=== PATIENT | female | born 1990 | race Caucasian/White ===

== ENCOUNTER → 2017-01-08 00:50 | Observation (INO) ==
--- NOTE | 2017-01-07 23:48 | OB/GYN History & Physical ---
Date of Encounter: 01/08/17 Time of Encounter: 23:45 Assessment and Plan (1) 32 weeks gestation of Current visit: Yes Status: Acute (2) Vaginal bleeding Current visit: Yes Status: Acute Plan to transfer to Dr. Sky at [facility] per discussion between Dr. Martinez and Dr. Sky. IV LR. CBC, type and cross, coags, and UDS. Magnesium sulfate 4grams prior to transfer. Celestone prior to transfer. Ampicillin. Transport to [facility] for ongoing care. (3) Placenta previa antepartum in third trimester Current visit: Yes Status: Acute Per pt report, placenta 2cm from cervix at last ultrasound about 2 weeks ago. (4) Smoking (tobacco) complicating , third trimester Current visit: Yes Status: Acute (5) History of delivery, currently in third trimester Current visit: Yes Status: Acute (6) Marijuana abuse Current visit: Yes Status: Acute History of Present Illness Chief complaint: bleeding HPI: Ms. Lomax is a 26 year old female presenting at 32w5d with c/o vaginal bleeding. Pt reports bleeding started during intercourse around 2240 this evening. She reports a history of placenta previa with this that she thinks resolved 2 weeks ago. She states her placenta is now 2cm away from her cervix. She had a delivery at 34 weeks with her first followed by 1 miscarriage. She then had a full term delivery and was on Angelika during . Following that delivery she had 2 miscarriages prior to this . She denies medical problems. She reports taking something for heartburn, vitamins, and Angelika with this . She does admit to tobacco use now and marijuana earlier in . She denies any other substance abuse. Past Med Surg Social Fam HX - Past Medical History Medical history: non-contributory, kidney stones Psychiatric history: no psych history - Social History Smoking Status: Current every day smoker Smokeless Tobacco Status: No Alcohol use: none Drug use: marijuana Obstetrical History - Pregnancies : 6 Para: 2 Term: 1 : 1 Ab's: 3 Livin - History/Complications History/Complications: one delivery at 30 weeks. On Angelika with second child and with this . Medications and Allergies Hydroxyprogesterone Caproate [[place]] 250 mg IM 01/08/17 [History] Vit/Iron Fumarate/FA [ Tablet] 1 each PO DAILY 01/08/17 [ History] Allergies No Known Allergies Allergy (Verified 08/10/16 09:21) Review of System OB All systems PM: reviewed and no additional remarkable complaints except as stated - Constitutional Constitutional ROS IM: no fever(s) - Cardiovascular Cardiovascular: no chest pain - Genitourinary Genitourinary: hematuria, no difficulty voiding, no pelvic pain, no vaginal discharge, no vaginal odor, no vaginal pruritis Exam - Constitutional Constitutional: well developed, well nourished, no acute distress - HEENT HEENT: Mucus Membranes Moist - Cardiovascular Cardiovascular exam: RRR - Abdomen Abdomen: Present: gravid, non tender - Extremities Extremities exam: normal inspection - Vulva Vulva: bilateral: normal - Cervix Dilation: 0 (visually closed) - Anus/Rectum Anus/Rectum: Present: normal perianal skin - Comments Comments: SSE with approx 30ml blood and clot in vaginal vault. Scant amount active bleeding. Unable to locate origin of bleeding. Results All other labs normal.
[2017-01-08 00:02] LABS: Amphetamine Screen,Urine Negative ng/mL (Cutoff=1000); Barbiturate Screen,Urine Negative ng/mL (Cutoff=200); Benzodiazepines Screen,Urine Negative ng/mL (Cutoff=200); Cannabinoid Screen,Urine Positive ng/mL (Cutoff = 50); Cocaine Screen,Urine Negative ng/mL (Cutoff= 300); Opiate Screen,Urine Negative ng/mL (Cutoff=300); Phencyclidine Screen,Urine Negative ng/mL (Cutoff=25)
[~2017-01-08 00:50] MED LIST: Ampicillin 2 GM in 0.9 % Sodium Chloride Mini Bag 100 ML IVPB ONE; Betamethasone Acet/SodPhos 6 MG/ML MDV IM SCH; Famotidine 20 MG/2 ML VIAL IVP PRN; Metoclopramide 10 MG/2 ML VIAL IVP PRN; Naloxone 0.4 MG/ML INJ IVP PRN; Ondansetron 4 MG/2 ML VIAL IVP PRN; Ringers Solution, Lactated 1,000 ML IVC SCH
== END | disposition short-term general hospital (02) ==
LOC: 1NENULAB
PROVIDERS: ADMIT Registered Nurse; ATTEND Registered Nurse

== ENCOUNTER 2017-01-31 06:46 | Inpatient (IN) ==
[~2017-01-31 06:46] MED LIST changes: -Ampicillin 2 GM in 0.9 % Sodium Chloride Mini Bag 100 ML IVPB ONE; -Betamethasone Acet/SodPhos 6 MG/ML MDV IM SCH; -Ondansetron 4 MG/2 ML VIAL IVP PRN; -Ringers Solution, Lactated 1,000 ML IVC SCH
[2017-01-31] MEDS ORDERED: Penicillin G Potassium 5,000,000 UNIT in D5% in Water (Mini-Bag+) 100 ML IVPB ONE (06:50)
[2017-01-31] MEDS ORDERED: Ringers Solution, Lactated 1,000 ML ONE (06:51)
[2017-01-31] MEDS ORDERED: Oxytocin 20 units/ LR 1000 mL 20 UNIT/1,000 ML BAG IVC ONE ×2 (06:53→08:18)
[2017-01-31] MEDS ORDERED: Ringers Solution, Lactated 1,000 ML IVC SCH (07:00)
[2017-01-31 07:03] LABS: Basophils # 0.1 K/mcL (0.0-0.2); Basophils % 0.3 %; Eosinophils # 0.2 K/mcL (0.0-0.6); Eosinophils % 1.2 %; Hemoglobin 12.9 g/dL (11.5-15.4); Immature Granulocytes % 1.1 % (0-4); Immature Platelets 1.9 % (1.1-6.1); Lymphocytes # 2.1 K/mcL (0.6-4.6); Mean Corpuscular HGB Conc 34.9 g/dL (31.6-35.5); Mean Corpuscular Hemoglobin 32.8 pg (28.0-33.3); Mean Corpuscular Volume 94.1 fL (83.0-100.0); Mean Platelet Volume 8.7 fL (9.4-12.4); Monocytes # 0.9 K/mcL (0.0-1.3); Monocytes % 5.6 %; Neutrophils # 12.9 K/mcL (1.6-8.9); Platelet Count 322 K/mcL (140-400); Red Blood Count 3.93 M/mcL (3.82-4.97); Red Cell Distribution Width 12.8 % (11.5-14.5); Segmented Neutrophils % 78.8 %
--- NOTE | 2017-01-31 07:26 | OB/GYN Procedure Note ---
Delivery - Delivery Date: 01/31/17 Provider: Suzy Thomas Intrapartum events: precipitous labor- <3hr Delivery induction: none Delivery augmentation: rupture of membranes Delivery monitor: external FHT, external uterine Anesthesia: none Estimated Blood Loss: 250 - Infant (s) A Delivery Date: 01/31/17 Infant Delivery Time: 07:00 Presentation: vertex Position: unknown Route of delivery: Gender: Male Viability: Viable Shoulder Dystocia: not encountered Specimens collected: cord blood, venous cord gases, arterial cord gases Placenta: spontaneous Cord: 3 umbilical vessels - Repair Episiotomy: none Laceration Description: Periurethral - Complications Delivery comments: Pt presented to triage complaining of contraction, vaginal bleeding and leaking of fluid. On exam complete with a bulging bag. Transferred to delivery room AROM for large amount of clear fluid, directed maternal bearing down efforts for one contraction to spontaneous delivery of liveborn male. Vertex delivered and shoulders and body instantly followed. Placed on maternal abdomen, stimulated, cry noted, cord cut and clamped and infant taken to warmer by nursery staff (see nursery charting for further resuscitation). Placenta delivered spontaneously (baer) appears intact on inspection, will send for pathology. Perineum intact with a single periuretheral laceration noted, hemostatic and left to heal without repair. EBL 250. Pt admits to THC use last night, denies any other drug use at this time. Cord gases sent - Disposition Mom disposition: stable in LDR Somis disposition: taken to nursery
--- NOTE | 2017-01-31 07:48 | OB/GYN History & Physical ---
Date of Encounter: 01/31/17 Time of Encounter: 07:43 Assessment and Plan (1) 36 weeks gestation of Current visit: Yes Status: Acute (2) Vaginal delivery Current visit: Yes Status: Acute Routine care and course anticipated. (3) Uterine contractions Current visit: Yes Status: Acute Admitted to labor and delivery with precipitous (4) GBS (group B streptococcus) infection Current visit: Yes Status: Acute (5) Marijuana abuse Current visit: No Status: Acute cord stat and UDS sent History of Present Illness Chief complaint: contractions HPI: Ms. Lomax is a 27 year old female [id number] to [place] with complaints of contractions and vaginal bleeding since 3am. . OB care at [facility], states only concern this was a low lying placenta which she was told resolved and she could have a vaginal delivery. Reports good movement. Attempting to obtain records from [facility] at this time. Past Med Surg Social Fam HX - Past Medical History Source: patient Medical history: non-contributory, kidney stones Psychiatric history: no psych history - Past Surgical History Surgical History: no surgical history - Social History Smoking Status: Current every day smoker Packs per day: 1 Smokeless Tobacco Status: No Alcohol use: none Drug use: marijuana Obstetrical History - Pregnancies : 6 Para: 2 Term: 1 : 1 Ab's: 3 Livin Medications and Allergies Hydroxyprogesterone Caproate [[place]] 250 mg IM 01/08/17 [History] Vit/Iron Fumarate/FA [ Tablet] 1 each PO DAILY 01/08/17 [ History] 3 Allergy/AdvReac Type Severity Reaction Status Date / Time No Known Allergies Allergy Verified 01/31/17 06:23 Exam - Constitutional Constitutional: well developed, well nourished, no acute distress, average body habitus - Neck Neck exam: full ROM - Lungs Respiratory exam: CTAB - Cardiovascular Cardiovascular exam: RRR - Abdomen Abdomen: Present: bowel sounds normal, gravid - Extremities Extremities exam: normal capillary refill, normal inspection - Vulva Vulva: bilateral: normal - Vagina Vagina: Present: normal moisture - Uterus Uterus exam: Present: normal size, normal contour - Anus/Rectum Anus/Rectum: Present: normal perianal skin Results Result Diagrams: 01/31/17 06:53 Abnormal lab results WBC 16.4 K/mcL (4.3-11.1) H 01/31/17 06:53 MPV 8.7 fL (9.4-12.4) L 01/31/17 06:53 Neutrophils # 12.9 K/mcL (1.6-8.9) H 01/31/17 06:53 All other labs normal. - VTE Reasons for not Prescribing Prophylaxis: Treatment not Indicated - Low risk for VTE
[2017-01-31] MEDS ORDERED: Penicillin G Potassium 2,500,000 UNIT in D5% in Water 100 ML IVPB SCH (08:00)
[2017-01-31] MEDS ORDERED: Measles/Mumps/Rubella Vacc 0.5 ML VIAL SQ PRN ×2 (08:37→11:03)
[2017-01-31] MEDS ORDERED: Rho Immune Globulin 1,500 UNIT SYRINGE IM PRN ×2 (08:37→11:03)
[2017-01-31] MEDS ORDERED: Acetaminophen 325 MG TABLET PO PRN ×2 (08:37→11:03)
[2017-01-31] MEDS ORDERED: Benzocaine/Menthol 56 GM AEROSOL SPRAY TP PRN ×2 (08:37→12:24)
[2017-01-31] MEDS ORDERED: Oxytocin 20 units/ LR 1000 mL 20 UNIT/1,000 ML BAG IVC SCH ×2 (08:37→11:15)
[2017-01-31] MEDS ORDERED: Ibuprofen 600 MG TABLET PO PRN (08:37)
[2017-01-31 08:39] LABS: Amphetamine Screen,Urine Negative ng/mL (Cutoff=1000); Barbiturate Screen,Urine Negative ng/mL (Cutoff=200); Benzodiazepines Screen,Urine Negative ng/mL (Cutoff=200); Cannabinoid Screen,Urine Positive ng/mL (Cutoff = 50); Cocaine Screen,Urine Negative ng/mL (Cutoff= 300); Opiate Screen,Urine Negative ng/mL (Cutoff=300); Phencyclidine Screen,Urine Negative ng/mL (Cutoff=25)
[2017-01-31] MEDS ORDERED: Prenatal Vit/FA 1 EACH TABLET PO SCH (09:00)
[2017-01-31] MEDS: Ibuprofen 600 MG TABLET PO PRN ×2 (11:59→18:16)
[2017-02-01] MEDS: Ibuprofen 600 MG TABLET PO PRN ×2 (00:56→07:35)
[2017-02-01 05:09] LABS: Basophils % 0.3 %; Eosinophils # 0.4 K/mcL (0.0-0.6); Eosinophils % 2.8 %; Hematocrit 29.8 % (35.3-44.9); Immature Granulocytes % 1.3 % (0-4); Lymphocytes # 2.9 K/mcL (0.6-4.6); Lymphocytes % 23.1 %; Mean Corpuscular HGB Conc 34.9 g/dL (31.6-35.5); Mean Corpuscular Hemoglobin 33.8 pg (28.0-33.3); Mean Corpuscular Volume 96.8 fL (83.0-100.0); Mean Platelet Volume 9.1 fL (9.4-12.4); Monocytes # 0.6 K/mcL (0.0-1.3); Neutrophils # 8.6 K/mcL (1.6-8.9); Platelet Count 243 K/mcL (140-400); Red Blood Count 3.08 M/mcL (3.82-4.97); Red Cell Distribution Width 13.2 % (11.5-14.5); Segmented Neutrophils % 67.5 %
[2017-02-01 05:43] LABS: Hemoglobin 10.4 g/dL (11.5-15.4)
[2017-02-01 08:03] VITALS: BP 133/86
--- NOTE | 2017-02-01 08:31 | Discharge Summary ---
Date of Encounter: 02/01/17 Time of Encounter: 08:23 - Discharge Diagnosis (1) Vaginal delivery Priority: Primary Status: Acute Comments: S/P Vaginal Delivery Day 1 Patient doing well S/P vaginal delivery Pain well controlled Lochia light and without clots Tolerating PO Diet. Denies difficulty urinating. Pumping for infant Discharge to guest today - Discharge Medications Prescriptions: Ibuprofen [Motrin] 600 mg PO Q6HR PRN #60 tab PRN Reason: Cramping Breast Pump [BREAST PUMP] 1 each .ROUTE AD #1 each Docusate [Colace] 100 mg PO BID PRN #15 PRN Reason: Constipation Home Medications: Vit/Iron Fumarate/FA [ Tablet] 1 each PO DAILY 01/08/17 [ History] Benzocaine/Menthol [place] [Dermoplast [place]] 1 appl TP QID PRN aerosol 02/01/17 [Rx] Breast Pump [BREAST PUMP] 1 each .ROUTE AD #1 each 02/01/17 [Rx] Docusate [Colace] 100 mg PO BID PRN #15 02/01/17 [Rx] Ibuprofen [Motrin] 600 mg PO Q6HR PRN #60 tab 02/01/17 [Rx] Vit/FA 1 each PO DAILY tab 02/01/17 [Rx] Allergies/Adverse Reactions: 3 Allergy/AdvReac Type Severity Reaction Status Date / Time No Known Allergies Allergy Verified 01/31/17 06:23 Data Procedures and tests throughout hospitalization: Laboratory Tests 01/31/17 01/31/17 02/01/17 06:53 08:14 04:12 WBC 16.4 H 12.7 H RBC 3.93 3.08 L Hgb 12.9 10.4 L D Hct 37.0 29.8 L MCV 94.1 96.8 MCH 32.8 33.8 H MCHC 34.9 34.9 RDW 12.8 13.2 Plt Count 322 243 MPV 8.7 L 9.1 L Immature Gran % 1.1 1.3 Seg Neutrophils % 78.8 67.5 Lymphocytes % 13.0 23.1 Monocytes % 5.6 5.0 Eosinophils % 1.2 2.8 Basophils % 0.3 0.3 Neutrophils # 12.9 H 8.6 Lymphocytes # 2.1 2.9 Monocytes # 0.9 0.6 Eosinophils # 0.2 0.4 Basophils # 0.1 0.0 Immature Plt Fraction 1.9 Urine Opiates Screen Negative Ur Barbiturates Screen Negative Ur Phencyclidine Scrn Negative Ur Amphetamines Screen Negative U Benzodiazepines Scrn Negative Urine Cocaine Screen Negative U Marijuana (THC) Screen Positive H Labs on day of discharge: Labs from last 24 hours 02/01/17 01/31/17 04:12 08:14 WBC 12.7 H RBC 3.08 L Hgb 10.4 L D Hct 29.8 L MCV 96.8 MCH 33.8 H MCHC 34.9 RDW 13.2 Plt Count 243 MPV 9.1 L Immature Gran % 1.3 Seg Neutrophils % 67.5 Lymphocytes % 23.1 Monocytes % 5.0 Eosinophils % 2.8 Basophils % 0.3 Neutrophils # 8.6 Lymphocytes # 2.9 Monocytes # 0.6 Eosinophils # 0.4 Basophils # 0.0 Urine Opiates Screen Negative Ur Barbiturates Screen Negative Ur Phencyclidine Scrn Negative Ur Amphetamines Screen Negative U Benzodiazepines Scrn Negative Urine Cocaine Screen Negative U Marijuana (THC) Screen Positive H Date of admission: 01/31/17 06:46 Consults: 01/31/17 11:03 Consult to Mastercam Programmer [CONS] Routine Comment: Vaginal delivery, consult needed Consult to Online Banking Specialist [CONS] Routine Reason for SW Consult: precip labor, no pnc here, THC in Discharging clinician: Cleo Ibarra Anticipated date of discharge: 02/01/17 - Patient Status Disposition: Home, Self-Care Condition: Good Functional capacity at discharge: independent ambulation - Discharge Instructions Additional Instructions: Please schedule a follow up with your LOT ATTENDANT in 6 weeks or before, if needed for and family planning care. - Diet and Activity Activity: increase activity as tolerated Diet: regular diet Hospital Course Reason for admission: active labor Delivery: Episiotomy: none Laceration: none Other procedures: none complications: none Discharge diagnosis: delivery [place] baby: male Time spent discussing smoking cessation with patient: 3 to 10 minutes Time Attestation: Total time spent providing and/or coordinating discharge services: Time Spent: Less than 30 minutes Exam - Constitutional Vitals: Temp Pulse Resp BP Pulse Ox 97.5 F L 71 16 133/86 98 02/01/17 07:30 02/01/17 07:30 02/01/17 07:30 08/21/17 07:30 02/01/17 03:08 General appearance IM: cooperative, A&O X 3, pleasant - Respiratory Respiratory exam: Present: CTAB - Cardiovascular Cardiovascular exam IM: Present: RRR, +S1, +S2 - GI/Abdominal GI/Abdominal exam IM: normal bowel sounds, soft - Uterine Tone: Firm Uterus Position: At Umbilicus, Midline - Extremities Exam Extremities exam IM: Present: normal capillary refill, normal inspection, radial pulses palpable and symmetrical - Neurological Exam Neurological exam: alert, oriented X3
[2017-02-01] MEDS ORDERED: Prenatal Vit/FA 1 EACH TABLET PO SCH (09:00)
== END 2017-02-01 11:32 | disposition home or self-care (01) | DRG 560 ==
LOC: 1NENULAB → 1NENUOBS 10:31
PROVIDERS: ADMIT Advanced Practice Midwife; ATTEND Advanced Practice Midwife